=== PATIENT | female | born 1970 | race Caucasian/White ===

== ENCOUNTER 2018-05-28 11:30 | Inpatient (IN) | payer OTHER ==
[~2018-05-28] VITALS: Ht 149.9 cm; Wt 63.5 kg
[~2018-05-28 11:30] MED LIST: CLONAZEPAM1 MG PO; DOCUSATE SODIU100 MG PO; LYRICA150 MG PO; PERCOCET 5-3251 EACH PO
[2018-05-28] MEDS ORDERED: ZANAFLEX PO (14:51)
[2018-05-30] MEDS ORDERED: ZANAFLEX2 MG PO (08:52)
[2018-05-30] MEDS ORDERED: DOCUSATE SODIU100 MG PO (16:16)
[2018-05-30] MEDS ORDERED: GABAPENTIN800 MG PO (16:16)
[2018-05-30] MEDS ORDERED: PERCOCET 5-3251 EACH PO (16:17)
[2018-05-30] MEDS ORDERED: CLONAZEPAM1 MG PO (16:17)
[2018-05-30] MEDS ORDERED: AMOX-CLAV 875-1 EACH PO (16:17)
== END 2018-05-31 17:27 | disposition home or self-care (01) | DRG 460 ==
LOC: SURG 05-30 05:25 → O/R 05-30 05:25 → SURH 05-30 10:15 → MEDI 05-30 16:43 → SURG 05-30 16:43
PROVIDERS: Orthopaedic Surgery Orthopaedic Surgery of the Spine
PROC: 0ST40ZZ Resection of Lumbosacral Disc, Open Approach (ICD-10-PCS; 2018-05-30)
PROC: 07DS3ZZ Extraction of Vertebral Bone Marrow, Percutaneous Approach (ICD-10-PCS; 2018-05-30)
PROC: 4A12X4Z Monitoring of Cardiac Electrical Activity, External Approach (ICD-10-PCS; 2018-05-30)
PROC: 0SG30AJ Fusion of Lumbosacral Joint with Interbody Fusion Device, Posterior Approach, Anterior Column, Open Approach (ICD-10-PCS; principal; 2018-05-30 10:15)
DX: M47.27 Other spondylosis with radiculopathy, lumbosacral region (principal); M51.17 Intervertebral disc disorders with radiculopathy, lumbosacral region